=== PATIENT | female | born 1965 | race Caucasian/White ===

== ENCOUNTER → 2016-09-13 | Outpatient (CLI) | payer OTHER ==
[~2016-09-13] MED LIST: AMBIEN10 MG PO; ATROVENT NASAL15 ML NS; CALTRATE 600 +1 TAB PO; CALTRATE-600 W600 MG PO; EFFEXOR37.5 MG PO; FLUOXETINE HYDR20 M2 PO; KETOROLAC10 MG PO; LORTAB 7.5/5001 TAB PO; MACROBID 100 M100 MG PO; MULTIPLE VITAMI1 CAP PO; MYCELEX TROCHE10 MG MM; NORFLEX100 MG PO; NYSTATIN 100MU/M1 ML PO; PEPCID 20MG TAB20 MG PO; PERCOCET 325 MG1 TA4 PO; POTASSIUM CHLO20 ME3 PO; PROZAC20 MG PO; TRIANEX0.05% TP; ULTRAM50 M1 PO; VITAMIN B12500 MCG PO
== END ==
LOC: LAB 09:58
DX: Z98.84 Bariatric surgery status (principal); E44.1 Mild protein-calorie malnutrition

== ENCOUNTER → 2016-11-06 | Outpatient (CLI) | payer OTHER ==
[2016-04-18 14:36] VITALS: BP 140/91
== END ==
LOC: LAB 13:59
DX: Z98.84 Bariatric surgery status (principal); E44.1 Mild protein-calorie malnutrition; D50.8 Other iron deficiency anemias; G89.4 Chronic pain syndrome

== ENCOUNTER → 2016-11-13 | Outpatient (CLI) | payer OTHER ==
[2016-04-18 14:36] VITALS: BP 140/91
== END ==
LOC: LAB 16:43
DX: F11.20 Opioid dependence, uncomplicated (principal)

== ENCOUNTER 2017-03-28 19:15 | Observation (INO) | payer OTHER ==
[~2017-03-28] VITALS: Ht 172.7 cm; Wt 58.3 kg
[~2017-03-28 19:15] MED LIST changes: -POTASSIUM CHLO480 ML PO
[2017-03-28 22:02] VITALS: BP 148/93
[2017-03-28 22:27] VITALS: BP 148/93
[2017-03-28 22:44] VITALS: BP 148/93
[2017-03-29 02:30] VITALS: BP 153/92
[2017-03-29 06:31] VITALS: BP 152/84
[2017-03-29 11:08] VITALS: BP 161/93
[2017-03-29] MEDS ORDERED: POTASSIUM CHLO480 ML PO (12:40)
[2017-03-29 12:55] VITALS: BP 151/96
== END 2017-03-29 13:45 | disposition home or self-care (01) ==
LOC: MED/SURG 19:15
PROVIDERS: ADMIT Nurse Practitioner Primary Care
DX: E87.6 Hypokalemia (principal); R60.0 Localized edema; F10.20 Alcohol dependence, uncomplicated; F17.210 Nicotine dependence, cigarettes, uncomplicated; E46 Unspecified protein-calorie malnutrition; R64 Cachexia; Z98.84 Bariatric surgery status
CPT/HCPCS: G0378; G0379; J3480; J7030

== ENCOUNTER → 2017-03-28 | Outpatient (CLI) | payer OTHER ==
[2016-04-18 14:36] VITALS: BP 140/91
[~2017-03-28] MED LIST changes: +POTASSIUM CHLO480 ML PO
== END ==
LOC: LAB 15:52
DX: R60.9 Edema, unspecified (principal)

== ENCOUNTER → 2017-03-30 | Outpatient (CLI) | payer OTHER ==
[2017-03-29 12:55] VITALS: BP 151/96
[~2017-03-30] MED LIST changes: +POTASSIUM CHLO480 ML PO
== END ==
LOC: LAB 11:08
DX: E87.6 Hypokalemia (principal)

== ENCOUNTER → 2017-04-17 | Outpatient (CLI) | payer OTHER ==
[2017-03-29 12:55] VITALS: BP 151/96
== END ==
LOC: LAB 09:09
DX: E87.6 Hypokalemia (principal)

== ENCOUNTER → 2017-05-15 | Outpatient (CLI) | payer OTHER ==
[2017-05-15 09:25] LABS: HEMATOCRIT 34.9 % (37.0-47.0); HEMOGLOBIN 11.4 g/dL (12.5-16.0); MEAN PLATELET VOLUME 9.1 fl (7.4-10.4); RED BLOOD COUNT 3.65 M/mm3 (4.10-5.30); RED CELL DISTRIBUTION WIDTH 14.2 % (11.5-14.5); WHITE BLOOD COUNT 6.1 K/mm3 (4.8-10.8)
[2017-05-15 09:37] LABS: BUN/CREATININE RATIO 10.3 (6.0-26.0); CALCIUM 8.4 mg/dL (8.4-10.2); POTASSIUM 3.4 mmol/L (3.6-5.0)
== END ==
LOC: LAB 09:11
PROVIDERS: Family Medicine
DX: D64.9 Anemia, unspecified (principal); E87.6 Hypokalemia

== ENCOUNTER → 2017-06-13 | Outpatient (CLI) | payer OTHER ==
[2017-06-14] LABS: FOLATE (FOLIC ACID) 17.6 ng/mL (7.0-31.4)
== END ==
LOC: LAB 14:45
PROVIDERS: Psychiatry & Neurology Neurology
DX: G62.9 Polyneuropathy, unspecified (principal); Z98.84 Bariatric surgery status

== ENCOUNTER → 2017-06-14 | Outpatient (CLI) | payer OTHER ==
[2017-06-16 12:01] LABS: .COPPER,S 1.02 mcg/mL (())
== END ==
LOC: LAB 15:33
PROVIDERS: Psychiatry & Neurology Neurology
DX: G62.9 Polyneuropathy, unspecified (principal); Z98.84 Bariatric surgery status

== ENCOUNTER → 2017-07-11 | Outpatient (CLI) | payer OTHER ==
[2017-07-11 15:21] LABS: BUN/CREATININE RATIO 7.8 (6.0-26.0); CALCIUM 8.3 mg/dL (8.4-10.2); POTASSIUM 3.3 mmol/L (3.6-5.0)
== END ==
LOC: LAB 14:49
PROVIDERS: Family Medicine
DX: E87.6 Hypokalemia (principal)

== ENCOUNTER → 2018-03-05 | Outpatient (RCR) | payer OTHER | END | disposition home or self-care (01) | LOC: PT | DX: R26.0 Ataxic gait (principal); R29.6 Repeated falls ==

== ENCOUNTER 2018-05-20 11:00 | Outpatient (RCR) | payer OTHER | END 2018-05-20 11:30 | disposition home or self-care (01) | LOC: PT 11:00 | DX: R26.0 Ataxic gait (principal); R29.6 Repeated falls ==

== ENCOUNTER → 2018-08-09 | Outpatient (CLI) | payer OTHER ==
[2018-08-03 17:57] VITALS: BP 149/82
[~2018-08-09] MED LIST changes: +GRALISE600 MG PO
[2018-08-09 16:54] LABS: EOS # 0.5 (0.04-0.40); EOS % 9.4 % (1.0-5.0); HEMATOCRIT 34.3 % (37.0-47.0); LYMPH# 2.2 (1.50-4.00); MEAN CELL VOLUME 77 fl (78-100); MEAN PLATELET VOLUME 9.5 fl (7.4-10.4); MONO # 0.5 (0.20-0.80); NEU # 1.9 (1.40-6.50); PLATELET COUNT 320 K/mm3 (130-400); RED BLOOD COUNT 4.44 M/mm3 (4.10-5.30); WHITE BLOOD COUNT 5.1 K/mm3 (4.8-10.8)
[2018-08-09 17:23] LABS: MEAN CORPUSCULAR HEMOGLOBIN 23 pg (27-31); MEAN CORPUSCULAR HGB CONC 29 g/dL (33-37); RED CELL DISTRIBUTION WIDTH 20.2 % (11.5-14.5)
== END ==
LOC: LAB 14:50
PROVIDERS: Family Medicine
DX: D50.9 Iron deficiency anemia, unspecified (principal)

== ENCOUNTER → 2018-09-05 | Outpatient (RCR) | payer OTHER | END | disposition home or self-care (01) | LOC: PT | DX: G60.9 Hereditary and idiopathic neuropathy, unspecified (principal); R26.0 Ataxic gait; R29.6 Repeated falls ==

== ENCOUNTER → 2018-12-11 | Outpatient (RCR) | payer OTHER ==
[2018-08-03 17:57] VITALS: BP 149/82
== END | disposition home or self-care (01) ==
LOC: PT
DX: G60.9 Hereditary and idiopathic neuropathy, unspecified (principal); R26.0 Ataxic gait; R29.6 Repeated falls

== ENCOUNTER → 2019-02-04 | Outpatient (CLI) | payer OTHER ==
[2018-08-03 17:57] VITALS: BP 149/82
== END ==
LOC: MAMMO 01-23 10:00
DX: Z12.31 Encounter for screening mammogram for malignant neoplasm of breast (principal)

== ENCOUNTER → 2019-03-17 | Outpatient (RCR) | payer OTHER ==
[2018-08-03 17:57] VITALS: BP 149/82
== END | disposition still patient (30) ==
LOC: PT
DX: G60.9 Hereditary and idiopathic neuropathy, unspecified (principal); R26.0 Ataxic gait

== ENCOUNTER 2019-04-10 10:00 | Outpatient (RCR) | payer OTHER ==
[2018-08-03 17:57] VITALS: BP 149/82
== END 2019-04-10 10:30 | disposition home or self-care (01) ==
LOC: PT 10:00
DX: G60.9 Hereditary and idiopathic neuropathy, unspecified (principal); R26.0 Ataxic gait

== ENCOUNTER → 2019-05-09 | Outpatient (CLI) | payer OTHER ==
[2018-08-03 17:57] VITALS: BP 149/82
[2019-05-09 13:57] LABS: HEMATOCRIT 41.1 % (37.0-47.0); MEAN CELL VOLUME 97 fl (78-100); MEAN CORPUSCULAR HEMOGLOBIN 31 pg (27-31); MEAN CORPUSCULAR HGB CONC 32 g/dL (33-37); MEAN PLATELET VOLUME 8.9 fl (7.4-10.4); PLATELET COUNT 418 K/mm3 (130-400); RED BLOOD COUNT 4.22 M/mm3 (4.10-5.30); RED CELL DISTRIBUTION WIDTH 12.9 % (11.5-14.5); WHITE BLOOD COUNT 6.3 K/mm3 (4.8-10.8)
[2019-05-09 14:15] LABS: LYMPHOCYTE 28 % (20-51); MONOCYTE 4 % (3-10); NEUTROPHILS 44 % (42-75)
== END ==
LOC: LAB 13:44
PROVIDERS: Family Medicine
DX: D50.9 Iron deficiency anemia, unspecified (principal)

== ENCOUNTER → 2021-11-02 | Outpatient (CLI) | payer OTHER ==
[~2021-11-02] MED LIST changes: +AMPHETAMINE SAL20 M1 PO; +MASON NATURAL325 MG PO
== END ==
LOC: RAD 11:00
DX: K43.9 Ventral hernia without obstruction or gangrene (principal); R59.0 Localized enlarged lymph nodes; R60.9 Edema, unspecified
CPT/HCPCS: Q9967

== ENCOUNTER → 2021-11-22 | Outpatient (CLI) | payer OTHER ==
[~2021-11-22] VITALS: Ht 170.2 cm; Wt 58.3 kg
[2021-11-22 11:35] VITALS: BP 118/72
== END ==
LOC: AMSURD 08:32
DX: D50.9 Iron deficiency anemia, unspecified (principal)
CPT/HCPCS: J1756

== ENCOUNTER 2021-12-21 19:48 | Emergency (ER) | payer OTHER ==
[~2021-12-21 19:48] MED LIST changes: -ALPRAZOLAM0.5 MG PO; -BUPRENORPHINE-1 EAC1 SL
[2021-12-21 20:48] LABS: LIPASE 7 U/L (8-78)
[2021-12-21 20:57] LABS: TROPONIN-I < 0.030 ng/mL (<0.030)
[2021-12-21] MEDS ORDERED: AMPHETAMINE SAL20 M1 PO (22:42)
[2021-12-21] MEDS ORDERED: ALPRAZOLAM0.5 MG PO (22:42)
[2021-12-21] MEDS ORDERED: BUPRENORPHINE-1 EAC1 SL (22:42)
[2021-12-21 23:00] VITALS: BP 115/76
== END 2021-12-21 23:00 | disposition home or self-care (01) ==
LOC: ED 19:48
PROVIDERS: Physician Assistant
DX: R60.0 Localized edema (principal); R79.1 Abnormal coagulation profile; R79.82 Elevated C-reactive protein (CRP); F17.210 Nicotine dependence, cigarettes, uncomplicated; Z28.310 Unvaccinated for COVID-19
CPT/HCPCS: J1650; Q9967

== ENCOUNTER → 2021-12-21 | Outpatient (CLI) | payer OTHER ==
[~2021-12-21] MED LIST changes: +ALPRAZOLAM0.5 MG PO; +BUPRENORPHINE-1 EAC1 SL
[2021-12-21 18:04] LABS: BASO # 0.05 K/mm3 (0.02-0.10); EOS # 0.45 K/mm3 (0.04-0.40); EOS % 3.7 % (1.0-5.0); HEMATOCRIT 29.6 % (37.0-47.0); HEMOGLOBIN 9.3 g/dL (12.5-16.0); LYMPH# 2.17 K/mm3 (1.50-4.00); MEAN CELL VOLUME 103 fl (78-100); MEAN CORPUSCULAR HEMOGLOBIN 32 pg (27-31); MEAN CORPUSCULAR HGB CONC 31 g/dL (33-37); MEAN PLATELET VOLUME 9.5 fl (7.4-10.4); PLATELET COUNT 227 K/mm3 (130-400); RED BLOOD COUNT 2.87 M/mm3 (4.10-5.30); RED CELL DISTRIBUTION WIDTH 16.1 % (11.5-14.5); WHITE BLOOD COUNT 12.3 K/mm3 (4.8-10.8)
[2021-12-21 18:16] LABS: ALBUMIN 2.6 g/dL (3.5-5.0)
[2021-12-21 18:18] LABS: CALCIUM 8.5 mg/dL (8.3-10.5)
[2021-12-21 18:19] LABS: TOTAL PROTEIN 6.7 g/dL (6.4-8.3)
[2021-12-21 18:21] LABS: TOTAL BILIRUBIN 3.5 mg/dL (0.2-1.2)
[2021-12-21 18:54] LABS: D-DIMER 4.4 mg/L FEU (0.15-0.50)
== END ==
LOC: LAB 17:45
PROVIDERS: Family Medicine
DX: R60.9 Edema, unspecified (principal)

== ENCOUNTER → 2021-12-22 | Outpatient (CLI) | payer OTHER ==
[~2021-12-22] MED LIST changes: +ALPRAZOLAM0.5 MG PO; +BUPRENORPHINE-1 EAC1 SL
== END ==
LOC: VAS 07:05 → RAD 07:05
DX: K74.60 Unspecified cirrhosis of liver (principal); M79.89 Other specified soft tissue disorders; R79.1 Abnormal coagulation profile

== ENCOUNTER → 2022-03-31 | Outpatient (CLI) | payer OTHER ==
[2022-03-31 16:21] LABS: BASO # 0.05 K/mm3 (0.02-0.10); EOS # 0.07 K/mm3 (0.04-0.40); EOS % 0.4 % (1.0-5.0); HEMATOCRIT 30.6 % (37.0-47.0); HEMOGLOBIN 9.6 g/dL (12.5-16.0); LYMPH# 1.41 K/mm3 (1.50-4.00); MEAN CELL VOLUME 106 fl (78-100); MEAN CORPUSCULAR HEMOGLOBIN 33 pg (27-31); MEAN CORPUSCULAR HGB CONC 31 g/dL (33-37); MEAN PLATELET VOLUME 8.6 fl (7.4-10.4); MONO # 0.58 K/mm3 (0.20-0.80); NEU # 14.99 K/mm3 (1.40-6.50); PLATELET COUNT 299 K/mm3 (130-400); RED BLOOD COUNT 2.88 M/mm3 (4.10-5.30); RED CELL DISTRIBUTION WIDTH 15.7 % (11.5-14.5); WHITE BLOOD COUNT 17.1 K/mm3 (4.8-10.8)
[2022-03-31 16:43] LABS: PROTHROMBIN TIME 16.4 SECONDS (9.0-12.0)
== END ==
LOC: LAB 16:07
PROVIDERS: Internal Medicine Gastroenterology
DX: K70.31 Alcoholic cirrhosis of liver with ascites (principal)

== ENCOUNTER 2022-05-25 13:12 | Outpatient (RCR) | payer OTHER | END 2022-06-07 | disposition still patient (30) | LOC: PT | DX: G60.9 Hereditary and idiopathic neuropathy, unspecified (principal); R29.6 Repeated falls ==

== ENCOUNTER 2022-07-12 08:44 | Outpatient (RCR) | payer SELFPAY | END 2022-08-08 | disposition still patient (30) | LOC: PT | DX: G60.9 Hereditary and idiopathic neuropathy, unspecified (principal) ==

== ENCOUNTER → 2022-08-23 | Outpatient (CLI) | payer BC ==
[2022-08-23 15:15] LABS: HEMATOCRIT 29.7 % (37.0-47.0); HEMOGLOBIN 9.2 g/dL (12.5-16.0); MEAN PLATELET VOLUME 8.8 fl (7.4-10.4); RED BLOOD COUNT 2.82 M/mm3 (4.10-5.30); RED CELL DISTRIBUTION WIDTH 16.1 % (11.5-14.5); WHITE BLOOD COUNT 14.7 K/mm3 (4.8-10.8)
[2022-08-23 15:20] LABS: ALBUMIN 3.1 g/dL (3.5-5.0); POTASSIUM 4.6 mmol/L (3.5-5.1)
[2022-08-23 15:21] LABS: CALCIUM 8.5 mg/dL (8.3-10.5)
[2022-08-23 15:23] LABS: TOTAL PROTEIN 6.8 g/dL (6.4-8.3)
[2022-08-23 15:24] LABS: TOTAL BILIRUBIN 2.2 mg/dL (0.2-1.2)
== END ==
LOC: LAB 15:02
PROVIDERS: Physician Assistant
DX: E78.5 Hyperlipidemia, unspecified (principal); D64.9 Anemia, unspecified

== ENCOUNTER → 2022-09-21 | Outpatient (CLI) | payer BC | LOC: RAD 10:51 | DX: K70.31 Alcoholic cirrhosis of liver with ascites (principal) | CPT/HCPCS: 19804; C1729 ==

== ENCOUNTER 2023-03-02 16:00 | Outpatient (RCR) | payer BC ==
[2023-01-30 14:00] VITALS: BP_SYST 113
[2023-02-13 14:23] VITALS: BP 110/55
[~2023-03-02] VITALS: Ht 170.2 cm; Wt 49.0 kg
[~2023-03-02 16:00] MED LIST changes: +ENULOSE10 GM/152 PO; -FLUOXETINE HYDR20 M2 PO; +FUROSEMIDE20 MG PO; +MEGESTROL AC40 MG/ML PO; +MULTIVITAMIN1 EACH PO; +NATURAL IRON65 MG PO; +NEURONTIN300 MG/CAP PO; +PANTOPRAZOLE SO40 MG PO; +POTASSIUM CHLO20 ME4 PO; +PROZAC20 M1 PO; +SPIRONOLACTONE50 M1 PO; +VITAMIN A3000 MC2 PO; +VITAMIN D21250 MCG PO; +XIFAXAN550 MG PO
[2023-03-02 16:08] VITALS: BP 90/54
[2023-03-02] MEDS ORDERED: LYRICA100 MG PO (16:27)
[2023-03-02 17:35] VITALS: BP 88/58
== END 2023-03-08 | disposition home or self-care (01) ==
LOC: AMSURD
DX: R94.5 Abnormal results of liver function studies (principal); R63.4 Abnormal weight loss; K74.69 Other cirrhosis of liver; E43 Unspecified severe protein-calorie malnutrition
CPT/HCPCS: P9047

== ENCOUNTER → 2023-03-21 | Outpatient (CLI) | payer BC ==
[~2023-03-21] MED LIST changes: +LYRICA100 MG PO
== END ==
LOC: MAMMO 09:53
DX: Z12.31 Encounter for screening mammogram for malignant neoplasm of breast (principal); M81.0 Age-related osteoporosis without current pathological fracture; N64.89 Other specified disorders of breast; K70.31 Alcoholic cirrhosis of liver with ascites; E55.9 Vitamin D deficiency, unspecified

== ENCOUNTER → 2023-05-08 | Outpatient (CLI) | payer BC ==
[2023-05-08 12:02] LABS: BASO # 0.09 K/mm3 (0.02-0.10); EOS # 0.24 K/mm3 (0.04-0.40); EOS % 2.4 % (1.0-5.0); HEMATOCRIT 32.8 % (37.0-47.0); HEMOGLOBIN 10.7 g/dL (12.5-16.0); LYMPH# 2.13 K/mm3 (1.50-4.00); MEAN CELL VOLUME 96 fl (78-100); MEAN CORPUSCULAR HEMOGLOBIN 31 pg (27-31); MEAN CORPUSCULAR HGB CONC 33 g/dL (33-37); MEAN PLATELET VOLUME 9.1 fl (7.4-10.4); MONO # 1.23 K/mm3 (0.20-0.80); PLATELET COUNT 260 K/mm3 (130-400); RED BLOOD COUNT 3.42 M/mm3 (4.10-5.30); RED CELL DISTRIBUTION WIDTH 14.4 % (11.5-14.5); WHITE BLOOD COUNT 10.1 K/mm3 (4.8-10.8)
[2023-05-08 12:21] LABS: ALBUMIN 3.6 g/dL (3.5-5.0)
[2023-05-08 12:22] LABS: CALCIUM 9.2 mg/dL (8.3-10.5)
[2023-05-08 12:23] LABS: TOTAL PROTEIN 7.6 g/dL (6.4-8.3)
[2023-05-08 12:25] LABS: TOTAL BILIRUBIN 2.1 mg/dL (0.2-1.2)
== END ==
LOC: RAD 11:40
PROVIDERS: Nurse Practitioner Family
DX: M19.071 Primary osteoarthritis, right ankle and foot (principal); M81.8 Other osteoporosis without current pathological fracture

== ENCOUNTER 2023-05-10 07:47 | Outpatient (RCR) | payer BC | END 2023-06-07 | LOC: PT | DX: G62.9 Polyneuropathy, unspecified (principal); R26.9 Unspecified abnormalities of gait and mobility ==

== ENCOUNTER → 2024-02-15 | Outpatient (CLI) | payer BC ==
[2024-02-15 12:38] LABS: BASO # 0.05 K/mm3 (0.02-0.10); EOS # 0.24 K/mm3 (0.04-0.40); EOS % 4.5 % (1.0-5.0); HEMATOCRIT 39.4 % (37.0-47.0); HEMOGLOBIN 12.4 g/dL (12.5-16.0); LYMPH# 1.43 K/mm3 (1.50-4.00); MEAN CELL VOLUME 98 fl (78-100); MEAN CORPUSCULAR HEMOGLOBIN 31 pg (27-31); MEAN CORPUSCULAR HGB CONC 32 g/dL (33-37); MEAN PLATELET VOLUME 9.1 fl (7.4-10.4); MONO # 0.38 K/mm3 (0.20-0.80); PLATELET COUNT 212 K/mm3 (130-400); RED BLOOD COUNT 4.04 M/mm3 (4.10-5.30); RED CELL DISTRIBUTION WIDTH 14.1 % (11.5-14.5); WHITE BLOOD COUNT 5.3 K/mm3 (4.8-10.8)
[2024-02-15 12:46] LABS: TOTAL PROTEIN 7.7 g/dL (6.4-8.3)
[2024-02-15 12:48] LABS: TOTAL BILIRUBIN 0.8 mg/dL (0.2-1.2)
[2024-02-19 14:12] LABS: A/G RATIO (PEP) 1.1 (0.7-1.7); BETA GLOBULINS (PEP) 1.2 g/dL (0.7-1.3)
[2024-02-22 14:13] LABS: VITAMIN B1 196.4 nmol/L (())
== END ==
LOC: LAB 11:48
PROVIDERS: Family Medicine
DX: I10 Essential (primary) hypertension (principal); R73.01 Impaired fasting glucose; E78.5 Hyperlipidemia, unspecified; E56.9 Vitamin deficiency, unspecified; D50.9 Iron deficiency anemia, unspecified; G62.9 Polyneuropathy, unspecified

== ENCOUNTER → 2024-03-20 | Outpatient (CLI) | payer BC ==
[2024-03-20 13:25] LABS: BASO # 0.05 K/mm3 (0.02-0.10); EOS # 0.27 K/mm3 (0.04-0.40); EOS % 4.5 % (1.0-5.0); HEMATOCRIT 38.1 % (37.0-47.0); HEMOGLOBIN 12.1 g/dL (12.5-16.0); LYMPH# 1.69 K/mm3 (1.50-4.00); MEAN CELL VOLUME 97 fl (78-100); MEAN CORPUSCULAR HEMOGLOBIN 31 pg (27-31); MEAN CORPUSCULAR HGB CONC 32 g/dL (33-37); MEAN PLATELET VOLUME 9.5 fl (7.4-10.4); MONO # 0.35 K/mm3 (0.20-0.80); NEU # 3.58 K/mm3 (1.40-6.50); PLATELET COUNT 205 K/mm3 (130-400); RED BLOOD COUNT 3.94 M/mm3 (4.10-5.30); RED CELL DISTRIBUTION WIDTH 14.3 % (11.5-14.5)
[2024-03-20 13:33] LABS: ALBUMIN 3.9 g/dL (3.5-5.0)
[2024-03-20 13:35] LABS: CALCIUM 9.5 mg/dL (8.3-10.5)
[2024-03-20 13:36] LABS: TOTAL PROTEIN 7.6 g/dL (6.4-8.3)
[2024-03-20 13:38] LABS: TOTAL BILIRUBIN 0.9 mg/dL (0.2-1.2)
[2024-03-20 23:09] LABS: PTH,INTACT 59.5 pg/mL (6.6-88.9)
[2024-03-20 23:25] LABS: FOLATE (FOLIC ACID) 16.9 ng/mL (2.0-20.0)
== END ==
LOC: LAB 12:55
PROVIDERS: Surgery
DX: E55.9 Vitamin D deficiency, unspecified (principal); D50.8 Other iron deficiency anemias; E88.09 Other disorders of plasma-protein metabolism, not elsewhere classified; E46 Unspecified protein-calorie malnutrition; Z98.84 Bariatric surgery status

== ENCOUNTER → 2024-03-26 | Outpatient (CLI) | payer BC | LOC: RAD 07:58 | DX: K70.31 Alcoholic cirrhosis of liver with ascites (principal) ==

== ENCOUNTER → 2024-03-28 | Outpatient (CLI) | payer BC | LOC: RAD 11:32 | DX: M50.30 Other cervical disc degeneration, unspecified cervical region (principal) ==

== ENCOUNTER → 2024-04-10 | Outpatient (CLI) | payer BC ==
[2024-04-10 08:00] LABS: BASO # 0.04 K/mm3 (0.02-0.10); EOS # 0.36 K/mm3 (0.04-0.40); EOS % 7.2 % (1.0-5.0); HEMATOCRIT 38.4 % (37.0-47.0); HEMOGLOBIN 11.9 g/dL (12.5-16.0); LYMPH# 1.23 K/mm3 (1.50-4.00); MEAN CELL VOLUME 100 fl (78-100); MEAN CORPUSCULAR HEMOGLOBIN 31 pg (27-31); MEAN CORPUSCULAR HGB CONC 31 g/dL (33-37); MEAN PLATELET VOLUME 9.1 fl (7.4-10.4); MONO # 0.33 K/mm3 (0.20-0.80); NEU # 3.02 K/mm3 (1.40-6.50); PLATELET COUNT 196 K/mm3 (130-400); RED BLOOD COUNT 3.86 M/mm3 (4.10-5.30); RED CELL DISTRIBUTION WIDTH 14.2 % (11.5-14.5)
[2024-04-10 08:11] LABS: ALBUMIN 3.9 g/dL (3.5-5.0)
[2024-04-10 08:13] LABS: CALCIUM 9.5 mg/dL (8.3-10.5)
[2024-04-10 08:14] LABS: TOTAL PROTEIN 7.6 g/dL (6.4-8.3)
[2024-04-10 08:16] LABS: TOTAL BILIRUBIN 0.7 mg/dL (0.2-1.2)
[2024-04-10 23:18] LABS: FOLATE (FOLIC ACID) 16.6 ng/mL (2.0-20.0)
[2024-04-11 00:45] LABS: PTH,INTACT 90.7 pg/mL (6.6-88.9)
[2024-04-17 05:38] LABS: VITAMIN A 53.6 ug/dL (())
== END ==
LOC: LAB 07:44
PROVIDERS: Surgery
DX: D50.8 Other iron deficiency anemias (principal); E55.9 Vitamin D deficiency, unspecified; E88.09 Other disorders of plasma-protein metabolism, not elsewhere classified; E46 Unspecified protein-calorie malnutrition; Z98.84 Bariatric surgery status

== ENCOUNTER → 2024-04-11 | Outpatient (CLI) | payer BC | LOC: RAD 13:12 | DX: M48.02 Spinal stenosis, cervical region (principal); G95.89 Other specified diseases of spinal cord ==

== ENCOUNTER → 2024-09-30 | Outpatient (CLI) | payer BC ==
[~2024-09-30] MED LIST changes: +Gadoterate 20 ML VIAL IV ONE
== END ==
LOC: RAD 07:30
DX: K86.2 Cyst of pancreas (principal)
CPT/HCPCS: A9575

== ENCOUNTER → 2024-10-23 | Outpatient (CLI) | payer BC ==
[~2024-10-23] MED LIST changes: -Gadoterate 20 ML VIAL IV ONE
[2024-10-23 14:17] LABS: BASO # 0.03 K/mm3 (0.02-0.10); EOS # 0.17 K/mm3 (0.04-0.40); EOS % 2.9 % (1.0-5.0); HEMATOCRIT 41.4 % (37.0-47.0); LYMPH# 2.02 K/mm3 (1.50-4.00); MEAN CELL VOLUME 97 fl (78-100); MEAN CORPUSCULAR HEMOGLOBIN 30 pg (27-31); MEAN CORPUSCULAR HGB CONC 31 g/dL (33-37); MEAN PLATELET VOLUME 8.8 fl (7.4-10.4); MONO # 0.45 K/mm3 (0.20-0.80); NEU # 3.25 K/mm3 (1.40-6.50); PLATELET COUNT 220 K/mm3 (130-400); RED BLOOD COUNT 4.28 M/mm3 (4.10-5.30); RED CELL DISTRIBUTION WIDTH 14.1 % (11.5-14.5); WHITE BLOOD COUNT 5.9 K/mm3 (4.8-10.8)
[2024-10-23 14:25] LABS: ALBUMIN 4.4 g/dL (3.5-5.0)
[2024-10-23 14:26] LABS: CALCIUM 9.8 mg/dL (8.3-10.5); PROTHROMBIN TIME 12.2 SECONDS (9.0-12.0)
[2024-10-23 14:27] LABS: TOTAL PROTEIN 8.4 g/dL (6.4-8.3)
[2024-10-23 14:29] LABS: TOTAL BILIRUBIN 0.9 mg/dL (0.2-1.2)
== END ==
LOC: LAB 13:52
PROVIDERS: Internal Medicine Gastroenterology
DX: K70.31 Alcoholic cirrhosis of liver with ascites (principal)
CPT/HCPCS: G0480